=== PATIENT | male | born 1975 | race Asian ===

== ENCOUNTER 2024-10-15 12:33 | Outpatient (AMB) | payer OTHER, SELFPAY ==
--- NOTE | 2024-10-15 12:39 | MHC.OFFVIS ---
Vital Signs 10/15/24 12:57 Height 5 ft 8 in Weight 180 lb BMI 27.4 BP 105/68 Blood Pressure Location Lt brachial Position Sitting Pulse 65 Pulse Oximetry (%) 98 Oxygen Delivery Method Room Air Intake Visit Reasons: [place] screening Intake Note: Patient new consult for 2nd colonoscopy screening. Patient denies any GI issues for today. Chief Cruiser Required: No Accompanied by: Friend Allergies house dust Allergy (Intermediate, Verified 10/15/24 12:45) Unknown weed pollen Allergy (Intermediate, Verified 10/15/24 12:45) Unknown Medication List - Last Reconciled 10/15/24 by Supriya Reveles CNP bisacodyl 5 mg PO ONCE 1 day polyethylene glycol 3350 (Miralax) 238 grams PO ONCE HPI HPI [place] screening: Details: Patient is a 48-year-old male with PMH of renal stone. Patient was referred by PCP for pre CRC screening. Pt is here today for pre colonoscopy screening. Patient is accompanied by his . He presents with colonoscopy result from 01/02/2019 completed in [facility]. Documentation include evidence of a 2x2 mm hyperplastic poylp from cecum. He also reports family history of CRC, affecting paternal grandparent and uncles. He would like to proceed with screening this year. He reports daily BM, describes as soft and formed, denies constipation or loose stools. He denies any GI symptoms/concerns. Patient denies: fever/chills, n/v, appetite changes, pyrosis, regurgitation,dysphasia, unintentional wt loss, ab pain or melena/hematochezia. Social hx: 1-2 glasses of wine or cocktail 1-2x/year denies recreational drug use former smoker, cessation 10+ years ago -family hx as below -denies personal hx of CA -denies significant cardiopulmonary history -tolerated anesthesia in the past without difficulty PFSH Medical History (Updated 10/15/24 @ 13:53 by Supriya Reveles CNP) Former smoker Colon cancer screening Surgical History (Updated 10/15/24 @ 12:57 by Tiffanie Tristan) Hx of colonoscopy Family History Father Heart disease Mother Stroke Paternal Grandfather Colon cancer Paternal Uncle Colon cancer Paternal Uncle Colon cancer Review of Systems Const Reports as per HPI ENT Reports as per HPI Card Reports as per HPI Resp Reports as per HPI GI Reports as per HPI Reports as per HPI Physical Exam Const General: healthy appearing, no acute distress and well developed Nutritional Appearance: well nourished Orientation/consciousness: patient oriented x3 HEENT Head: Yes normal to inspection, Yes normocephalic and Yes atraumatic Face and sinus: Yes normal facial exam Eyes General: appearance normal, both eyes and all related structures Neck Neck: Yes normal visual inspection Resp Effort & Inspection: normal respiratory effort, able to speak in complete sentences, no tracheal deviation and symmetric chest movement Auscultation: clear to auscultation bilaterally Cardio Jugular venous distension: no JVD Rate: regular rate Rhythm: regular rhythm Heart sounds: S1 normal heart sound present, S2 normal heart sound present, no gallops and no murmurs GI Inspection: Yes normal to inspection and No distended Palpation (GI): Soft to palpation, not firm, nontender and No hepatosplenomegaly present Auscultation: normal bowel sounds Neuro General: patient oriented x3 Gait exam (Neuro): Normal gait present Psych Appearance: grossly normal Mental Status: mental status grossly normal Speech and movement: Normal speech and movement present Affect: normal affect Attitude: cooperative Thought process: Normal thought process present Thought content: Normal thought content present Insight: Good insight present (Psych) Judgement: Good judgement present (Psych) Assessment & Plan Assessment & Plan (1) Colon cancer screening: Code(s): Z12.11 - Encounter for screening for malignant neoplasm of colon Category: Medical Plan: Reviewed colonoscopy report presented by patient. Based on results of hyperplastic < 10mm appropriate screening time would be 2028. However, per patient's request we will proceed with screening. He also has family history of colon cancer. Although not FDR. Reviewed prep and procedure expectations. Prep Rx'd to preferred pharmacy. Plan Follow-up after colonoscopy or sooner as needed Time: I spent a total of 45 minutes on the date of encounter which includes: Preparing to see the patient (reviewed previous documentation, test results and medical history) Performing a medically appropriate exam and/or evaluation Ordering medications, tests, and procedures Documenting clinical information in the health record Medications: New polyethylene glycol 3350 (Miralax) per colonoscopy prep instructions 238 grams PO ONCE 238 grams 0RF bisacodyl per colonoscopy instructions 5 mg PO ONCE 1 day 4 tabs 0RF Coding Level of Care Code New Pt New Pt Level 5 (91890) Patient Type New Diagnoses Colon cancer screening Z12.11
[2024-10-15 12:57] VITALS: BP 105/68; PULSE 65; O2SAT 98; BMI 27.4
--- OUTSIDE RECORDS SUMMARY | 2024-10-15 12:58 | XMS_ITS | Clinical Summary ---
Author Organization [employer] Address [address] [place] [address] Care Team Providers Care Inspector Fibrous Wallboard Name Role Phone Carl Rivera MD Primary Care Prov ider Allergies No known active allergies Medications predniSONE (Deltasone) 20 MG tablet Take 2 tablets (40 mg) by mouth Once per day for 5 days. 10 tablet 10/07/2024 10/13/19 25 Active Problems Problem Noted Date Diagnosed Date Encounter for medical examination to establish c are 07/12/2024 Assessment & Plan (07/12/2024 10:59 AM EST): Last pcp visit 4 months ago Er: - Hospitalization: - Pmhx: - Pshx: - All: - Meds: - Screening for colon cancer 07/12/2024 Assessment & Plan (07/12/2024 11:13 AM EST): Will refer for colon cancer screening Encounters Date Type Department Care Team Description 10/07/2024 10:30 AM EDT Office Visit [facility] [address] [place] [address] Carl Rivera MD Class 1 obesity due to excess calories without serious comorbidity with body mass index (BMI) of 30.0 to 30.9 in adult (Primary Dx); Skin rash 10/07/2024 Telephone [facility] [address] [place] [address] Carl Rivera MD Colon Cancer Screening 10/07/2024 Travel 07/27/2024 Telephone [facility] [address] [place] [address] Carl Rivera MD Appointment Request from Last 3 Months Immunizations Name Administration Dates Next Due HepB-CpG 03/23/2024,02/23/2024 Influenza, Injectable, MDCK, preservative free 0 01/23/2024 Tdap 01/23/2024 Varicella 02/23/2024 Family History Medical History Relation Name Comments Heart disease Father Diabetes Mother Hypertension Mother Stroke Mother Stomach cancer Paternal Grandfather Relation Name Status Comments Father Mother Paternal Grandfather Social History Tobacco Use Types Packs/Day Years Used Date Smoking Tobacco: Never Passive Smoke Exposure: Never Smokeless Tobacco: Never Tobacco Cessation:Counseling Given: Not Answered Alcohol Use Standard Drinks/Week Comments Never 0 (1 standard drink = 0.6 oz pur e alcohol) Depression Answer Date Recorded Patient Health Questionnaire-9 Score 0 07/12/2024 Patient Health Questionnaire-9 Score 0 07/12/2024 Last PHQ-9: Questionnaire Data Not on file 0 07/12/2024 Housing Stability Answer Date Recorded What is your housing situation today? Not on caity e 07/12/[address] you li ve. Do you have problems with any of the following? None of the above 07/12/2024 Food Insecurity Answer Date Recorded Within the past 12 months, y ou worried that your food would run out before you got money to buy more: Never True 07/12/2024 Within the past 12 months,th e food you bought just didn't last and you didn't have enough money to get more: Never True Transportation Answer Date Recorded In the past 12 months, has l ack of transportation kept you from medical appts, meetings, work or from getting things needed for daily living? No 07/12/2024 Utilities Answer Date Recorded In the past 12 months, has t he electric, gas, oil or water company threatened to shut off services in your home? No 07/12/2024 Depression Answer Date Recorded Patient Health Questionnaire-2 Score 0 07/12/2024 Internet Access Answer Date Recorded Internet Access Q1 Yes 07/12/2024 Internet Access Q2 Not on file 07/12/2024 Sex and Gender Information Value Date Recorded Sex Assigned at Male 05/11/2024 8:22 AM EST Legal Sex Male 3:23 PM EDT Gender Identity Male 05/11/2024 8:22 AM EST Sexual Orientation Don't know 10/07/2024 11 :58 AM EDT Last Filed Vital Signs Vital Sign Reading Time Taken Comments Blood Pressure 122/74 10/07/2024 10:49 AM EDT Pulse 72 10/07/2024 10:49 AM EDT Temperature 37.1 ??C (98.7 ??F) 10/07/2024 10:49 AM E DT Respiratory Rate 20 10/07/2024 10:49 AM EDT Oxygen Saturation - - Inhaled Oxygen Concentration - - Weight 80.7 kg (178 lb) 10/07/2024 10:49 AM EDT Height 167.6 cm (5' 6 ) 10/07/2024 10:49 AM EDT Body Mass Index 28.73 10/07/2024 10:49 AM EDT Plan of Treatment Upcoming Encounters Date Type Department Care Team ([facility] st Contact Info) Description 11/18/2024 10:15 AM EDT Telemedicine [facility] [address] [place] [address] GutierrezCarl Chatterjee MD [address] [place] [address] Health Maintenance Due Date Last Done Comments CT Colonography 1975 Colonoscopy 1975 Colorectal Cancer Screening 1975 FIT DNA/Cologuard 1975 FIT 1975 FOBT 1975 HIV Screening 1975 Lipid Panel 1975 SDOH Screening 1975 Sigmoidoscopy 1975 Family Planning (PISQ) 12/27/1990 Hepatitis C Screening 12/27/1993 COVID-19 Vaccine (2 - 2023-2 5 season) 2024 01/23/2024 Alcohol/Substance Use Screening 07/12/2025 07/12/2024 Depression Screening 07/12/2025 07/12/2024, 07/12/2024 Tobacco Screening 07/12/2025 07/12/2024 Zoster Vaccines (1 of 2) 12/27/2025 DTaP/Tdap/Td Vaccines (2 - T d or Tdap) 01/22/2034 01/23/2024 RSV Patients and Patients Aged 60 years or older (1 - 1-dose 75+ series) 12/27/2050 Influenza Vaccine Completed 01/23/2024 Hepatitis B Vaccines Completed 03/23/2024, 02/23/2024 HIB Vaccines Aged Out No longer eligi ble based on patient's age to complete this topic HPV Vaccines Aged Out No longer eligi ble based on patient's age to complete this topic Hepatitis A Vaccines Aged Out No long er eligible based on patient's age to complete this topic IPV Vaccines Aged Out No longer eligi ble based on patient's age to complete this topic Meningococcal Vaccine Aged Out No gisselle giorgio eligible based on patient's age to complete this topic Pneumococcal Vaccine: Pediatrics (0 to 5 Years) and At-Risk Patients (6 to 49) Years) Aged Out No longer eligible b ased on patient's age to complete this topic RSV under 20 months Aged Out No longe r eligible based on patient's age to complete this topic Rotavirus Vaccines Aged Out No longer eligible based on patient's age to complete this topic Insurance [facility] Care Teams Inspector Fibrous Wallboard Relationship Specialty Start Date End Date Carl Rivera MD [address] [place] [id number] PCP - General Internal Medicine 07/27/24
== END 2024-10-15 13:09 | disposition home or self-care (01) ==
PROVIDERS: PCP Internal Medicine; Visit Provider Nurse Practitioner Family
DX: Z01.818 Encounter for other preprocedural examination (principal); Z12.11 Encounter for screening for malignant neoplasm of colon; Z86.0102 Personal history of hyperplastic colon polyps
CPT/HCPCS: 99202

== ENCOUNTER → 2024-10-15 12:33 | Outpatient (BNVA) | payer OTHER, SELFPAY | PROVIDERS: PCP Internal Medicine; Visit Provider Nurse Practitioner Family | DX: Z01.818 Encounter for other preprocedural examination (principal) | CPT/HCPCS: 99202 ==

== ENCOUNTER 2024-11-05 09:29 | Outpatient (REF) | payer OTHER, SELFPAY ==
--- OUTSIDE RECORDS SUMMARY | 2024-11-05 09:49 | XMS_ITS | Clinical Summary ---
Author Organization [employer] Address [address] [place] [address] Care Team Providers Care Assembly Room Supervisor Name Role Phone Carl Rivera MD Primary [...] Description 10/07/2024 10:30 AM EDT Office Visit [facility] [address] [place] [address] Carl Rivera MD Class 1 obesity due to excess calories without serious comorbidity with body mass index (BMI) of 30.0 to 30.9 in adult (Primary Dx); Skin rash 10/07/2024 Telephone [facility] [address] [place] [address] Carl Rivera MD Colon Cancer Screening 10/07/2024 Travel from Last 3 Months Immunizations Immunization Administration Dates Next Due HepB-CpG 03/23/2024,02/23/2024 Influenza, [...] Upcoming Encounters Date Type Department Care Team ([facility] st Contact Info) Description 11/18/2024 10:15 AM EDT Telemedicine [facility] [address] [place] [address] Carl Rivera MD [address] [place] [address] Health Maintenance Due Date Last Done Comments CT Colonography 1975 Colonoscopy 1975 Colorectal Cancer Screening 1975 FIT DNA/Cologuard 1975 FIT 1975 FOBT 1975 HIV Screening 1975 Lipid Panel 1975 SDOH Screening 1975 Sigmoidoscopy 1975 Disability Screening 1975 Family Planning (PISQ) 12/27/1990 Hepatitis C [...] patient's age to complete this topic Meningococcal B Vaccine Aged Out No l onger eligible based on patient's age to complete [...] patient's age to complete this topic Insurance [facility] Care Teams Assembly Room Supervisor Relationship Specialty Start Date End Date Carl Rivera MD [address] [place] [id number] PCP - General Internal Medicine 07/27/24
[2024-11-05 14:20] LABS: MANUAL DIFF FLAG NO
[2024-11-05 14:25] LABS: Basophils Percent Auto 0.8 % (0-2); Eosinophils Absolute Auto 0.3 X10*3/uL (0.0-0.4); Eosinophils Percent Auto 6.1 % (0-4); Hematocrit 44.6 % (42.0-52.0); Hemoglobin 14.7 g/dl (14.0-18.0); Imm Gran Abs Auto 0.02 X10*3/uL (0.00-0.03); Imm Gran Pct Auto 0.4 % (0.0-0.4); Lymphocytes Absolute Auto 2.5 X10*3/uL (1.2-4.9); Mean Platelet Volume 9.1 fL (9.4-12.4); Monocytes Absolute Auto 0.5 X10*3/uL (0.1-1.2); Monocytes Percent Auto 9.7 % (2-11); Neutrophils Absolute Auto 1.6 x10*3/uL (2.0-8.3); Platelet Count 221 X10*3/uL (160-400); Red Cell Distribution Width 12.9 % (11.0-16.0); White Blood Count 4.9 X10*3/uL (4.8-10.8)
[2024-11-05 14:34] LABS: Estimated Average Glucose 114 mg/dL; Hemoglobin A1C 149.7034 umol/L; Hemoglobin A1c % 5.6 % (<6.0)
[2024-11-05 14:54] LABS: Alanine Aminotransferase 8 U/L (0-40); Albumin Level 4.3 g/dL (3.5-5.0); Alkaline Phosphatase 53 U/L (39-117); Anion Gap 10 (12-20); Aspartate Amino Transferase 22 U/L (5-37); Bilirubin Total 0.8 mg/dL (0.0-1.0); Blood Urea Nitrogen 19 mg/dL (9-16); Calcium 9.1 mg/dL (8.4-10.2); Carbon Dioxide 27 mmol/L (22-29); Chloride 106 mmol/L (96-108); Cholesterol 208 mg/dL (<200); Estimated Glomerular Filt Rate > 60; Glucose Random 93 mg/dL (60-115); HDL Cholesterol 49 mg/dL (>40); LDL Cholesterol Calculated 150 mg/dL (<100); Potassium 4.1 mmol/L (3.3-5.1); Sodium 139 mmol/L (135-145); TSH reflex Free T4 1.62 uIU/mL (0.32-4.0); Total Protein 7.1 g/dL (6.5-8.0); Triglycerides 48 mg/dL (<150)
[2024-11-08 08:17] LABS: HIV Num 1 77.85 S/CO (0.00-0.99); ~HepC Num1 0.13 S/CO (0.00-0.79); ~Hepatitis C Antibody Nonreactive (Nonreactive)
[2024-11-08 09:13] LABS: HIV AB/AG Reactive (Nonreactive); HIV Num 2 77.94 S/CO; HIV Num 3 82.51 S/CO
[2024-11-11 19:47] LABS: HIV 1 Antibody POSITIVE (NEGATIVE); HIV 2 Antibody NEGATIVE (NEGATIVE)
== END 2024-11-05 09:30 | disposition home or self-care (01) ==
LOC: HO.CHCLDS 09:29
PROVIDERS: Visit Provider Internal Medicine
DX: E66.811 Obesity, class 1 (principal); E66.09 Other obesity due to excess calories; Z68.30 Body mass index [BMI] 30.0-30.9, adult; Z13.1 Encounter for screening for diabetes mellitus; B20 Human immunodeficiency virus [HIV] disease
CPT/HCPCS: 36415; 80053; 80061; 83036; 84443; 85025; 86701; 86702; 86803; 87389

== ENCOUNTER 2024-11-19 11:41 | Outpatient (REF) | payer OTHER, SELFPAY ==
[2024-11-19 13:24] LABS: Appearance Urine Clear; Color Urine Yellow; Glucose Urine UA Negative (Negative); Leukocyte Esterase Urine Negative (Negative); Nitrite Urine Negative (Negative); PH 6.5 (5.0-9.0); Specific Gravity - Urine 1.015 (1.005-1.025); Urine Blood Negative (Negative); Urine Ketones 15 mg/dL (Negative); Urine Protein Negative (Neg-Trace)
[2024-11-19 14:45] LABS: CT PCR NOT DETECTED (Not Detect.); NG PCR NOT DETECTED (Not Detect.)
[2024-11-20 03:59] LABS: Syphilis Screen Nonreactive (Nonreactive)
[2024-11-20 04:26] LABS: HBS Num1 46.17 mIU/mL (0-7.99); HBc Num1 0.09 S/CO (0.00-0.79); HBsAGNum1 0.33 S/CO (0.00-0.99); Hepatitis B Core Antibody Nonreactive (Nonreactive); Hepatitis B Surface Antigen Negative (Negative); ~Hepatitis B Surface Antibody REACTIVE (Nonreactive)
[2024-11-21 23:47] LABS: TS Negative Control Passed; TS Panel A 0; TS Panel B 2; TS Positive Control Passed; TSpotTB Negative (Negative)
[2024-11-22 21:29] LABS: Cytomegalovirus Ab IgM <30.00 AU/mL
[2024-11-23 18:13] LABS: Varicella IgG Antibody 1.01 S/CO
[2024-11-23 21:14] LABS: Glucose-6-Phosphate Dehydrogen 13.7 U/g Hgb (7.0-20.5)
[2024-11-23 22:38] LABS: Rubella IgG Antibody 5.15 Index; Rubeola IgG (Measles) >300.00 AU/mL
[2024-11-24 14:13] LABS: Toxoplasma IgG Antibody <7.20 IU/mL; Toxoplasma IgM Antibody <8.00 AU/mL
[2024-11-24 16:43] LABS: Absolute CD3 Count 1668 cells/uL (840-3060); Absolute CD4 Count 369 cells/uL (490-1740); Absolute CD8 Count 1301 cells/uL (180-1170); Absolute Lymphocytes 1941 cells/uL (850-3900); CD4 CD8 Ratio 0.28 (0.86-5.00); Percent CD3 Cells 86 % (57-85); Percent CD4 Cells 19 % (30-61); Percent CD8 Cells 67 % (12-42)
[2024-11-24 19:54] LABS: HIV RNA PCR Qn Copies 84100 Copies/mL; HIV RNA PCR Qn Log Copies 4.92 Log cps/mL
[2024-11-26 08:20] LABS: Hepatitis A Antibody IgG Nonreactive (Nonreactive); ~Hepatitis A Antibody IgG 0.63 S/CO (0.00-0.99)
[2024-12-02 19:23] LABS: Date Viral Load Collected NG; Dolutegravir Resistance NOT PREDICTED; HIV-1 Bictegravir Resistance NOT PREDICTED; HIV-1 Cabotegravir Resistance NOT PREDICTED; HIV-1 Elvitegravir Resistance NOT PREDICTED; Raltegravir Resistance NOT PREDICTED; Value of Last HIV Viral Load NG copies/mL
[2024-12-06 03:23] LABS: HIV Genotype DETECTED
== END 2024-11-19 11:42 | disposition home or self-care (01) ==
LOC: HO.HHCL 11:41
PROVIDERS: Visit Provider Internal Medicine
DX: Z21 Asymptomatic human immunodeficiency virus [HIV] infection status (principal)
CPT/HCPCS: 36415; 81003; 82955; 86359; 86360; 86481; 86644; 86645; 86704; 86706; 86708; 86735; 86762; 86765; 86777; 86778; 86780; 86787; 87340; 87491; 87536; 87591; 87900; 87901; 87906

== ENCOUNTER 2024-11-25 13:17 | Outpatient (REF) | payer OTHER, SELFPAY ==
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
== END 2024-11-25 13:18 | disposition home or self-care (01) ==
LOC: HO.HHCLNP 13:17
PROVIDERS: Visit Provider Internal Medicine
DX: Z21 Asymptomatic human immunodeficiency virus [HIV] infection status (principal)
CPT/HCPCS: 88112

== ENCOUNTER 2025-01-10 12:18 | Outpatient (REF) | payer OTHER, SELFPAY ==
--- OUTSIDE RECORDS SUMMARY | 2025-01-10 13:14 | XMS_ITS | Data Portability ---
Author Organization [place] - [facility], Allergy Address [address] [place] [phone] Care Team Providers Care Tar Heat Exchanger Cleaner Name Role Phone AUDIE STOLL Referring Provider Assessment Encounter Date Assessment Date Assessment LastModified by Organization Details LastModified Time 11/25/2024 11/25/2024 pt had no ENT issue. cancel apt, return copay [email or web address] Not available 11/25/2024 14:19:58 Plan of Treatment Reminders Order Date Submit Date Provider Last Modified By Organization Details Last Modified Time Details Appointments None record ed. Lab None record ed. Referral None record ed. Procedures None record ed. Surgeries None record ed. Imaging None record ed. Medication Orders None record ed. Patient TargetsNo targets recorded. Patient InstructionsNo instructions recorded. Reason for Referral None Reported. Problems Name Problem SNOMED Code Status Onset Date Resolution Date Notes Provider Name and Address Organization Details Recorded Time Eruption 829511027 Active 025 PRAKASH ALCALA MD [address] [place] [address] [place], [phone] , [facility] - [facility] 14:20:43 Problem Notes None recorded. Medical [...] Updated DateTime 11/25/2024 172.72 cm 27.2 kg/m2 95180.03 g VIOLET LESTER [place] - [facility] 11/25/2024 14:06:28 Social History None recorded. Functional Status None recorded. Mental Status None recorded. Family History Nothing Reported. Medical History No medical history recorded. Past Encounters Encounter ID Performer Location Encounter Start Date Encounter Closed Date Diagnosis/Indication Diagnosis SNOMED-CT Code Diagnosis ICD10 Code Diagnosis Note [id number] PRAKASH ALCALA MD [facility] [address] [address] 11/25/2024 13:54:13 11/25/2024 16:04:43 [facility] [id number] R21 Health Concerns Section Related Observation LastModified by Organization Detai ls LastModified Time None Recorded Concern Status LastModified by Organization Details LastModified Time None Recorded Advance Directives Directive None Recorded Payers Insurance Date Sequence Insurance Name Policy Number Policy Cee Covered Member ID Cee Member ID Guarantor Name 11/25/2024 1 [facility] Sergio Voss [id number] Sergio Voss 11/25/2024 1 [facility] [id number] 1 Sergio Voss [id number] Sergio Voss
[2025-01-12 15:43] LABS: HIV RNA PCR Qn Copies <20 DETECTED copies/mL (NOT DETECTED); HIV RNA PCR Qn Log Copies <1.30 DETECTED (NOT DETECTED)
== END 2025-01-10 12:19 | disposition home or self-care (01) ==
LOC: HO.HHCL 12:18
PROVIDERS: PCP Internal Medicine; Visit Provider Internal Medicine
DX: B20 Human immunodeficiency virus [HIV] disease (principal)
CPT/HCPCS: 36415; 87536

== ENCOUNTER 2025-04-01 14:57 | Outpatient (REF) | payer OTHER, SELFPAY ==
[2025-04-01 16:07] LABS: MANUAL DIFF FLAG NO
[2025-04-01 16:18] LABS: Hematocrit 45.4 % (42.0-52.0); Hemoglobin 15.4 g/dl (14.0-18.0); Imm Gran Abs Auto 0.03 X10*3/uL (0.00-0.03); Imm Gran Pct Auto 0.5 % (0.0-0.4); Lymphocytes Absolute Auto 2.8 X10*3/uL (1.2-4.9); Mean Corpuscular HGB Conc 33.9 g/dl (31.0-36.0); Mean Corpuscular Hemoglobin 31.3 pg (27.0-33.0); Mean Corpuscular Volume 92.3 fL (80.0-98.0); NRBC Abs Auto 0.000 X10*3/uL (0.0-0.012); NRBC Pct Auto 0.0 /100WBC (0.0-0.2); Platelet Count 241 X10*3/uL (160-400); Red Blood Count 4.92 X10*6/uL (4.60-5.80); White Blood Count 6.7 X10*3/uL (4.8-10.8)
[2025-04-01 16:56] LABS: Alanine Aminotransferase 12 U/L (0-40); Albumin Level 4.6 g/dL (3.5-5.0); Alkaline Phosphatase 71 U/L (39-117); Anion Gap 12 (12-20); Aspartate Amino Transferase 23 U/L (5-37); Blood Urea Nitrogen 17 mg/dL (9-16); Calcium 9.4 mg/dL (8.4-10.2); Carbon Dioxide 28 mmol/L (22-29); Chloride 104 mmol/L (96-108); Estimated Glomerular Filt Rate > 60; Potassium 3.9 mmol/L (3.3-5.1); Sodium 140 mmol/L (135-145); Total Protein 7.5 g/dL (6.5-8.0)
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
[2025-04-02 14:14] LABS: HIV RNA PCR Qn Copies 99 copies/mL (NOT DETECTED); HIV RNA PCR Qn Log Copies 2.00 (NOT DETECTED)
[2025-04-07 11:49] LABS: Absolute CD3 Count 2378 cells/uL (840-3060); Absolute CD8 Count 1518 cells/uL (180-1170); Percent CD3 Cells 76 % (57-85); Percent CD8 Cells 49 % (12-42)
== END 2025-04-01 14:58 | disposition home or self-care (01) ==
LOC: HO.HHCL 14:57
PROVIDERS: Internal Medicine; PCP Internal Medicine
DX: B20 Human immunodeficiency virus [HIV] disease (principal)
CPT/HCPCS: 36415; 80053; 85025; 86359; 86360; 87536

== ENCOUNTER 2025-05-04 09:55 | Day surgery (SDC) | payer OTHER, SELFPAY ==
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
[2025-05-04 10:20] VITALS: BMI 29.5
[2025-05-04 10:34] VITALS: BP 119/77; PULSE 77; RESP 16; TEMP 36.7; O2SAT 98
[2025-05-04] MEDS: Lactated Ringers 1,000 ML 100 ML IVCONT (10:43)
--- NOTE | 2025-05-04 10:51 | P.HPSUR_ITS ---
Pre-Procedural Eval Section A - 24 Hr Update-Section A only Date of Service: 05/04/25 Section B - Complete if H&P > 30 days Chief Complaint: screening Relevant Family History (Specify if Yes): Yes Relevant Social History: None Present Medications: see Short Stay Collaborative assessment Medical History: No relevant PMH History of Previous Operations: Relevant previous surgery/procedure and date(s) (Hx of colonoscopy) Allergies: Allergies Allergy/AdvReac Type Severity Reaction Status Date / Time house dust Allergy Intermediate Unknown Verified 10/15/24 12:45 weed pollen Allergy Intermediate Unknown Verified 10/15/24 12:45 Review of Systems Sugical H&P ROS: Negative: Constitution, Cardiovascular, Respiratory, Neurological, Psychiatric, Hem-Onc, Allergic/Immunologic, Gastrointestinal, Genitourinary, Musculoskeletal, Integumentary, Endocrine and Eyes /Ears/Nose/Throat Exam Surgical H&P Exam: Normal: HEENT, Normal: Heart, Normal: Lungs, Normal: Extremities, Normal: Abdomen, Normal: Skin and Normal: Neurological Plan Diagnosis/Plan: Unchanged I have reviewed the history and physical and performed a pertinent physical examination on my patient. No changes have occurred unless specified. Time Spent With Patient Time: Total time managing care of this patient today ____ minutes.
--- NOTE | 2025-05-04 10:55 | HO.ANESPROP2 ---
Documented by User: Caridad Morales NP 05/03/25 12:52 HPI - Anesthesia Eval Consult details Narrative: 49yo M for Colonoscopy PMFSH Active Problems Active Problems: All Active Problems Colon cancer screening (Acute) Past Medical History Medical History (Updated 10/15/24 @ 14:51 by Supriya Reveles CNP) Former smoker Colon cancer screening Family History Family History Father Heart disease Mother Stroke Paternal Grandfather Colon cancer Paternal Uncle Colon cancer Paternal Uncle Colon cancer Surgical History Surgical History (Updated 10/15/24 @ 12:57 by Tiffanie Tristan) Hx of colonoscopy Social History Social History Are you a primary child care centre manager to a significant other at home: No Do you presently have visiting nurse or other home services: No Patient Tobacco Use Status: Former Tobacco user Second Hand Smoke Exposure: No Use of substances other than those prescribed or required for medical reasons: No Have you been hit, kicked, punched, or otherwise hurt by someone within the past year? If so, by whom?: No Are you DNR?: No Advance Directives: No Advance Directives Information Provided: Yes Advance Directives on File: No Meds Allergies Allergy/AdvReac Type Severity Reaction Status Date / Time house dust Allergy Intermediate Unknown Verified 10/15/24 12:45 weed pollen Allergy Intermediate Unknown Verified 10/15/24 12:45 Home Medications ?Medication ?Instructions ?Recorded ?Confirmed ?Last Taken ?Type bictegravir 50 mg-emtricitabine 1 tab PO DAILY 05/04/25 05/04/25 05/03/25 History 200 mg-tenofovir alafenam 25 mg tablet (Biktarvy) Assessment and Plan Assessment Anesthesia Assessment: Chart Reviewed Documented by User: Ilda Munoz DO 05/04/25 10:55 PMFSH Past Medical History Medical History (Updated 10/15/24 @ 14:51 by Supriya Reveles CNP) Former smoker Colon cancer screening Family History Family History Father Heart disease Mother Stroke Paternal Grandfather Colon cancer Paternal Uncle Colon cancer Paternal Uncle Colon cancer Family history of problems with anesthesia: No Surgical History Surgical History (Updated 10/15/24 @ 12:57 by Tfifanie Tristan) Hx of colonoscopy History of Problems with Anesthesia: No Social History Social History Are you a primary child care centre manager to a significant other at home: No Do you presently have visiting nurse or other home services: No Patient Tobacco Use Status: Former Tobacco user Second Hand Smoke Exposure: No Use of substances other than those prescribed or required for medical reasons: No Have you been hit, kicked, punched, or otherwise hurt by someone within the past year? If so, by whom?: No Are you DNR?: No Advance Directives: No Advance Directives Information Provided: Yes Advance Directives on File: No Meds Allergies Allergy/AdvReac Type Severity Reaction Status Date / Time house dust Allergy Intermediate Unknown Verified 10/15/24 12:45 weed pollen Allergy Intermediate Unknown Verified 10/15/24 12:45 Home Medications ?Medication ?Instructions ?Recorded ?Confirmed ?Last Taken ?Type bictegravir 50 mg-emtricitabine 1 tab PO DAILY 05/04/25 05/04/25 05/03/25 History 200 mg-tenofovir alafenam 25 mg tablet (Biktarvy) Exam Exam Date and Time: 05/04/25 1051 Height,Weight and Vital Signs: Height 5 ft 8 in Weight 88 kg Vital Signs Temperature 98.1 F 05/04/25 10:34 Pulse Rate 77 05/04/25 10:34 Respiratory Rate 16 05/04/25 10:34 Blood Pressure 119/77 05/04/25 10:34 Pulse Oximetry 98 05/04/25 10:34 Oxygen Delivery Method Room Air 05/04/25 10:34 Temperature 98.1 F 05/04/25 10:34 Pulse Rate 77 05/04/25 10:34 Respiratory Rate 16 05/04/25 10:34 Blood Pressure 119/77 05/04/25 10:34 Pulse Oximetry 98 05/04/25 10:34 Oxygen Delivery Method Room Air 05/04/25 10:34 Airway Mallampati Class: II TM Dist: <=3cm Neck ROM: Full Loose/Missing/Broken Teeth: No (patient denies any loose or broken teeth) Heart: S1S2 Lungs: CTAB Assessment and Plan Assessment Anesthesia Assessment: Anesthesia Plan Discussed and Chart Reviewed Final Anesthetic Review Family History of Problems with Anesthesia: No History of Problems with Anesthesia: No NPO: Yes ASA Class: I Final Preanesthetic Review: No Changes in Pt Med Stat, Meds/Allgs Chart Reviewed, Consent Obtained/Reviewed and Anes Risks/Benef Reviewed Patient Risk: Low Procedure Risk: Low Anesthetic Plan Anesthetic Plan: MAC: and Agree w/ Assess. and Plan Disposition: Standard PACU
--- NOTE | 2025-05-04 11:22 | HO.OPN-COLON ---
Colonoscopy Operative Note Operative Note Date of Service: 05/04/25 Narrative: Operative Information Procedure Description: Colonoscopy Indication: screening Anesthesia: MAC COLONOSCOPY Instrument: Olympus variable stiffness pediatric scope 190L Colonoscopy Monitoring: Vital signs and clinical assessment, continuous EKG monitoring, Pulse oximetry, Carbon Dioxide monitoring and blood pressure monitoring were done throughout the procedure. Colon withdrawal time was 10 minutes. Procedure: The patient was placed in the left lateral decubitis position and pre-procedure medications were administered. After a digital rectal examination of the ano-rectum, the video colonoscope was inserted into the rectum and advanced through the colon to the cecum/TI. The colonoscope was slowly withdrawn in a retrograde panoramic fashion and the colon mucosa was carefully examined including a retroflexed view of the rectum. Findings and interventions are described below. Procedure Difficulty: easy Findings: Terminal Ileum-normal Cecum:normal right sided retroflexion- normal Ascending Colon: normal Transverse Colon -normal Descending Colon: 6-8 mm sessile polyp removed with cold snare Sigmoid Colon: normal Rectum: Retroflexion with small internal hemorrhoids seen, grade I Anorectum - normal Intervention: cold snare Colon preparation: Z[place] Bowel Preparation Scale Right colon; 2 Transverse colon: 2 Left colon; 1-2 (0 = Unprepared colon segment with mucosa not seen due to solid stool that cannot be cleared. 1 = Portion of mucosa of the colon segment seen, but other areas of the colon segment not well seen due to staining, residual stool and/or opaque liquid. 2 = Minor amount of residual staining, small fragments of stool and/or opaque liquid, but mucosa of colon segment seen well. 3 = Entire mucosa of colon segment seen well with no residual staining, small fragments of stool or opaque liquid) Impression and Post Procedure Diagnosis: colon polyp x 1 internal hemorrhoids Plan: High fiber diet leaflet Avoid straining at stool, epsom salts and sitz bath, anusol supps or cream Repeat Colonoscopy in 3 years due to few areas of fair prep or earlier if clinically indicated Above findings were reviewed with the patient and relevant handouts were provided if indicated.
[2025-05-04 11:26] VITALS: BP 102/61; PULSE 89; RESP 16; TEMP 36.1; O2SAT 98
[2025-05-04 11:40] VITALS: BP 108/68; PULSE 83; RESP 12; TEMP 36.1; O2SAT 94
== END 2025-05-04 12:21 | disposition home or self-care (01) ==
PROVIDERS: PCP Internal Medicine; Visit Provider Internal Medicine Gastroenterology
PROC: 0DJD8ZZ Inspection of Lower Intestinal Tract, Via Natural or Artificial Opening Endoscopic (ICD-10-PCS; CPT 45378; principal; 2025-05-04 12:50)
DX: Z12.11 Encounter for screening for malignant neoplasm of colon (principal); Z86.0102 Personal history of hyperplastic colon polyps; K64.0 First degree hemorrhoids; D12.4 Benign neoplasm of descending colon
CPT/HCPCS: 45385; 88305; J2704

== ENCOUNTER → 2025-05-04 09:55 | Outpatient (BNV) | payer OTHER, SELFPAY | PROVIDERS: PCP Internal Medicine; Visit Provider Internal Medicine Gastroenterology | DX: Z12.11 Encounter for screening for malignant neoplasm of colon (principal); K63.5 Polyp of colon; K64.0 First degree hemorrhoids | CPT/HCPCS: 45385 ==